=== PATIENT | female | born 1990 | race Caucasian/White ===

== ENCOUNTER → 2025-05-30 16:57 | Outpatient (CLI) | payer OTHER, SELFPAY ==
[2025-05-30 17:45] LABS: Influenza A - CEPHEID Flu A NEGATIVE (NEGATIVE); Influenza B - CEPHEID Flu B NEGATIVE (NEGATIVE)
[2025-05-30 18:14] LABS: COVID-19 CEPHEID 4-PLEX PCR Negative (Negative)
== END ==
PROVIDERS: Visit Provider Registered Nurse
DX: R05.1 Acute cough (principal); J02.9 Acute pharyngitis, unspecified
CPT/HCPCS: 87070; 87637